=== PATIENT | male | born 1990 | race Caucasian/White ===

== ENCOUNTER 2021-01-13 22:01 | Emergency (ER) | payer OTHER ==
[2021-01-13 22:11] VITALS: TEMP 97.6
[2021-01-13] MEDS ORDERED: ONDANSETRON 4 MG/2 ML VIAL IVP STA (22:19)
[2021-01-13] MEDS ORDERED: SODIUM CHLORIDE 0.9% 1,000 ML IV STA (22:19)
[2021-01-13] MEDS ORDERED: MORPHINE SULFATE 4 MG/ML SYRINGE IV STA (22:19)
--- NOTE | 2021-01-13 22:54 | ED ---
Nausea/Vomiting/Diarrhea HPI - General Chief complaint: Nausea/Vomiting/Diarrhea Stated complaint: Vomiting Time Seen by Provider: 01/13/21 22:15 Source: patient, RN notes reviewed Mode of arrival: ambulatory Limitations: no limitations - History of Present Illness Initial comments: Patient is a 30-year-old male that presents to the emergency department complaining of nausea and vomiting times one. He notes every time he eats or drinks anything he vomits. He notes up until this point he is been a picture perfect health with no health issues. She notes that he is been try to drink water and Gatorade stay hydrated. He denied any other complaints or issues at this time. He was in no apparent distress or pain while sitting up in bed during exam and interview. He did note that he had some mild abdominal discomfort in the left upper quadrant. She denied any history of pancreatitis or other abdominal issues. He denied any chest pain shortness breath headache diarrhea constipation fever fatigue chills. - Related Data Previous Rx's Medication Instructions Recorded Ibuprofen [Motrin] 800 mg PO Q6HR #30 tab 07/29/17 Penicillin V Potassium [Pen Vee K] 500 mg PO QID #40 tablet 07/29/17 Allergies Allergy/AdvReac Type Severity Reaction Status Date / Time No Known Allergies Allergy Verified 01/13/21 22:10 Review of Systems ROS Statement: Those systems with pertinent positive or pertinent negative responses have been documented in the HPI. ROS Other: All systems not noted in ROS Statement are negative. Past Medical History Past Medical History: No Reported History History of Any Multi-Drug Resistant Organisms: None Reported Past Surgical History: No Surgical Hx Reported Past Psychological History: No Psychological Hx Reported Past Alcohol Use History: None Reported Past Drug Use History: None Reported General Exam Limitations: no limitations General appearance: alert, in no apparent distress Head exam: Present: atraumatic, normocephalic, normal inspection Eye exam: Present: normal appearance, PERRL, EOMI. Absent: scleral icterus, conjunctival injection, periorbital swelling Neck exam: Present: normal inspection Respiratory exam: Present: normal lung sounds bilaterally. Absent: respiratory distress, wheezes, rales, rhonchi, stridor Cardiovascular Exam: Present: regular rate, normal rhythm, normal heart sounds. Absent: systolic murmur, diastolic murmur, rubs, gallop, clicks GI/Abdominal exam: Present: soft, tenderness (Left upper quadrant), normal bowel sounds. Absent: distended, guarding, rebound, rigid Extremities exam: Present: normal inspection, full ROM, normal capillary refill. Absent: tenderness, pedal edema, joint swelling, calf tenderness Neurological exam: Present: alert, oriented X3, CN II-XII intact Psychiatric exam: Present: normal affect, normal mood Skin exam: Present: warm, dry, intact, normal color. Absent: rash Course Vital Signs 01/13/21 01/13/21 01/14/21 22:08 23:09 01:08 Temperature 97.6 F Pulse Rate 74 64 67 Respiratory 18 20 18 Rate Blood Pressure 120/78 131/75 135/75 O2 Sat by Pulse 99 97 98 Oximetry Medical Decision Making - Medical Decision Making 22-year-old male complaining of nausea and vomiting times one. Labs, 4 mg of Zofran, 4 mg morphine, KUB, 1 L normal saline ordered. Labs show an elevated white count of 16.7. Patient appears to be dehydrated. Upon reevaluation patient states that he is feeling much better like to go home at this time. Case discussed with Dr. Gutiérrez, patient can discharge home with follow-up to primary care. - Lab Data Result diagrams: 01/13/21 22:53 01/13/21 22:53 Lab Results 01/13/21 01/13/21 Range/Units 22:53 22:53 WBC 16.7 H (3.8-10.6) k/uL RBC 5.76 (4.30-5.90) m/uL Hgb 17.5 (13.0-17.5) gm/dL Hct 51.2 (39.0-53.0) % MCV 88.9 (80.0-100.0) fL MCH 30.5 (25.0-35.0) pg MCHC 34.3 (31.0-37.0) g/dL RDW 13.2 (11.5-15.5) % Plt Count 311 (150-450) k/uL MPV 8.1 Neutrophils % 90 % Lymphocytes % 5 % Monocytes % 3 % Eosinophils % 1 % Basophils % 0 % Neutrophils # 15.0 H (1.3-7.7) k/uL Lymphocytes # 0.8 L (1.0-4.8) k/uL Monocytes # 0.6 (0-1.0) k/uL Eosinophils # 0.2 (0-0.7) k/uL Basophils # 0.0 (0-0.2) k/uL Sodium 145 (137-145) mmol/L Potassium 5.1 (3.5-5.1) mmol/L Chloride 99 (98-107) mmol/L Carbon Dioxide 25 (22-30) mmol/L Anion Gap 21 mmol/L BUN 22 H (9-20) mg/dL Creatinine 1.53 H (0.66-1.25) mg/dL Est GFR (CKD-EPI)AfAm 70 (>60 ml/min/1.73 sqM) Est GFR (CKD-EPI)NonAf 61 (>60 ml/min/1.73 sqM) Glucose 135 H (74-99) mg/dL Calcium 11.5 H (8.4-10.2) mg/dL Total Bilirubin 0.5 (0.2-1.3) mg/dL AST 26 (17-59) U/L ALT 26 (4-49) U/L Alkaline Phosphatase 72 (38-126) U/L Total Protein 9.6 H (6.3-8.2) g/dL Albumin 5.7 H (3.5-5.0) g/dL Amylase 75 (30-110) U/L Lipase 26 (23-300) U/L - Radiology Data Radiology results: report reviewed, image reviewed KUB: No acute findings. Disposition Clinical Impression: Dehydration, Gastroenteritis Disposition: HOME SELF-CARE Condition: Stable Instructions (If sedation given, give patient instructions): Acute Nausea and Vomiting (ED) Additional Instructions: Please return to the Emergency Department if symptoms worsen or any other concer ns. Follow-up with primary care in 1-3 days. Continue to increase oral fluids and eat food as tolerated. Take Zofran as prescribed. Is patient prescribed a controlled substance at d/c from ED?: No Referrals: None,Stated [Primary Care Provider] - 1-2 days Time of Disposition: 01:13
[2021-01-13 23:36] LABS: Basophils % (A) 0 %; Eosinophils # (A) 0.2 k/uL (0-0.7); Eosinophils % (A) 1 %; HCT 51.2 % (39.0-53.0); HGB 17.5 gm/dL (13.0-17.5); Lymphocytes # (A) 0.8 k/uL (1.0-4.8); Lymphocytes % (A) 5 %; MCH 30.5 pg (25.0-35.0); MCHC 34.3 g/dL (31.0-37.0); MCV 88.9 fL (80.0-100.0); Mean Platelet Volume 8.1; Monocytes # (A) 0.6 k/uL (0-1.0); Monocytes % (A) 3 %; Neutrophils % (A) 90 %; Platelet Count 311 k/uL (150-450); RBC 5.76 m/uL (4.30-5.90); RDW 13.2 % (11.5-15.5); WBC 16.7 k/uL (3.8-10.6)
[2021-01-14 00:05] LABS: Albumin 5.7 g/dL (3.5-5.0); Calcium 11.5 mg/dL (8.4-10.2); Potassium 5.1 mmol/L (3.5-5.1); Total Bilirubin 0.5 mg/dL (0.2-1.3); Total Protein 9.6 g/dL (6.3-8.2)
[2021-01-14] MEDS ORDERED: SODIUM CHLORIDE 0.9% 1,000 ML IV STA (00:19)
--- NOTE | 2021-01-14 01:03 | XR ---
EXAM: XR Abdomen, 1 View CLINICAL HISTORY: ITS.REASON XR Reason: pain TECHNIQUE: Frontal supine view of the abdomen/pelvis. COMPARISON: No relevant prior studies available. FINDINGS: Intraperitoneal space: No pneumoperitoneum is seen under the diaphragm. Gastrointestinal tract: There is a gas fluid level in a nondilated stomach. Small bowel loops are nondilated. The colon is nondilated. Bones/joints: Skeletal structures appear unremarkable. Other findings: No abnormal calcifications are visualized. IMPRESSION: No acute findings.
[2021-01-14] MEDS ORDERED: ONDANSETRON 4 MG ODT STARTER PACK 2 TAB BTL PO STA (01:13)
[2021-01-14 02:35] VITALS: BP 135/87; PULSE 71; RESP 14
== END 2021-01-14 02:34 | disposition home or self-care (01) ==
LOC: EC 22:01
DX: E86.0 Dehydration (principal); K52.9 Noninfective gastroenteritis and colitis, unspecified; D72.829 Elevated white blood cell count, unspecified
CPT/HCPCS: 99284 ×2; 96360; 80053; 82150; 83690; 85025; 74018; 96374; 96375; 96361; J2270; J2405; 10060

== ENCOUNTER 2021-04-04 17:21 | Emergency (ER) | payer OTHER ==
[2021-04-04 17:24] VITALS: TEMP 98
[2021-04-04] MEDS ORDERED: IBUPROFEN 800 MG TAB PO STA (18:28)
[2021-04-04] MEDS ORDERED: HYDROcodone/APAP 5-325MG 1 EACH TAB PO STA (18:28)
--- NOTE | 2021-04-04 20:08 | XR ---
EXAMINATION TYPE: XR hand complete LT DATE OF EXAM: 04/04/2021 CLINICAL HISTORY: And in particular fifth metacarpal pain and swelling after falling injury. TECHNIQUE: Frontal, lateral and oblique images of the left hand are obtained. COMPARISON: None. FINDINGS: There is acute comminuted impacted and slightly displaced fracture through the distal metad iaphysis that metacarpal. Slight radial displacement of distal fracture fragment noted. The joint spa kirill in the left hand appear within normal limits. The overlying soft tissue appears unremarkable. IMPRESSION: There is acute comminuted slightly displaced fracture through the distal metadiaphysis f ifth metacarpal. (Boxer type fracture)
--- NOTE | 2021-04-04 20:23 | ED ---
General Adult HPI - General Chief complaint: Extremity Injury, Upper Stated complaint: L hand injury Time Seen by Provider: 04/04/21 18:10 Source: patient, RN notes reviewed, old records reviewed Mode of arrival: ambulatory Limitations: no limitations - History of Present Illness Initial comments: I evaluated the patient when he was placed in a bed. Patient is a 30-year-old male who is left-handed who presents emergency Department complaining of a fall off of a skateboard. He landed on an outstretched left hand. He immediately expressed swelling around his left knuckle. He presents emergency department over concern for possible fracture. Denies any other injuries, including his side, loss of consciousness, back pain, abdominal pain, chest pain. He is reduced range of motion of the left hand secondary to pain in the left finger. His femoral range of motion of the wrist. Denies any numbness, sensory deficits, weakness otherwise. His no laceration. Endorses no other acute complaints at this time. - Related Data Previous Rx's Medication Instructions Recorded Ibuprofen [Motrin] 800 mg PO Q6HR #30 tab 07/29/17 Penicillin V Potassium [Pen Vee K] 500 mg PO QID #40 tablet 07/29/17 HYDROcodone/APAP 5-325MG [[place] 1 tab PO Q6HR PRN 3 Days #12 tab 04/04/21 5-325] Ibuprofen [Motrin] 800 mg PO Q8H PRN 7 Days #21 tab 04/04/21 Allergies Allergy/AdvReac Type Severity Reaction Status Date / Time No Known Allergies Allergy Verified 04/04/21 17:24 Review of Systems ROS Statement: Those systems with pertinent positive or pertinent negative responses have been documented in the HPI. Review of Systems: CONST: Denies fever EYES: Denies blurry vision ENT: Denies nasal congestion C/V: Denies Chest pain RESP: Denies shortness of breath GI: Denies abdominal pain : Denies dysuria SKIN: Denies rash. MSK: Endorses left hand. NEURO: Denies headache ROS Other: All systems not noted in ROS Statement are negative. Past Medical History Past Medical History: No Reported History History of Any Multi-Drug Resistant Organisms: None Reported Past Surgical History: No Surgical Hx Reported Past Psychological History: No Psychological Hx Reported Smoking Status: Current every day smoker Past Alcohol Use History: None Reported Past Drug Use History: None Reported General Exam - General Exam Comments Initial Comments: General: Appears in no acute distress. HEAD: Normal with no signs of head trauma. EYES: PERRLA, EOMI, conjunctiva normal, no discharge. ENT: Hearing grossly intact RESPIRATORY: No respiratory distress C/V: Regular rate and rhythm. Peripheral pulses are 2+ and intact throughout, including the left radial pulse. ABD: Abdomen is soft, nontender. EXT: Patient has reduced range of motion of the left hand fifth digit secondary to suspected fracture. There is no obvious deformity. There is edema around the 5th MCP joint of the left hand. No sensory deficits. SKIN: No rashes or lesions observed on exposed skin. NEURO: Alert and oriented 4. No focal sensory strength deficits at this time. Limitations: no limitations Course Vital Signs 04/04/21 04/04/21 17:22 20:38 Temperature 98.0 F Pulse Rate 105 H 77 Respiratory 18 20 Rate Blood Pressure 120/70 119/80 O2 Sat by Pulse 97 100 Oximetry Procedures - Orthopedic Fracture Reduction Fracture #1 Consent Obtained: verbal consent Side: left Fracture Reduction Location: finger Analgesia: none Technique: direct manipulation Post-Reduction Neuro Exam: intact Post-Reduction Vascular Exam: intact Splint Applied: Yes ( Ulnar Gutter) Patient Tolerated Procedure: well - Orthopedic Splinting/Casting Injury #1 Side: left Upper Extremity Injury Location: hand Upper Extremity Immobilizer: sugar tong splint Medical Decision Making - Medical Decision Making Based on the patient's presentation and physical exam, I'm concerned for possible acute bony traumatic injury the patient's left hand. Therefore we will obtain an x-ray of the left hand as well as provide him with analgesia, with Beattie and ibuprofen. He was in agreement this plan. Patient's hand x-ray revealed a left comminuted slightly displaced fracture of the fifth metacarpal, boxer fracture. Discussed the results with the patient and he expressed understanding. Splint was applied, an ulnar gutter splint and he tolerated the procedure well. Postprocedure neurovascular check was within normal limits. Attempted reduction was performed during the procedure. Patient will follow-up with orthopedic surgery. He was in agreement this plan. Patient signed the opiate lead start talking form. I will provide the patient with a prescription for 12 tablets of Beattie 5, ibuprofen. I instructed the patient to follow up with their PCP in the next 3 days. I provided contact information for follow up with orthopedic surgery Dr. Donovan. I explained that the patient should return to the emergency department if they experience any worsening symptoms. Strict return precautions were discussed with the patient. The patient expressed understanding of these instructions. I answered all questions that the patient had. The patient was discharged home in fair condition with their prescriptions and follow up information. Disposition Clinical Impression: Boxer's fracture Disposition: HOME SELF-CARE Condition: Fair Instructions (If sedation given, give patient instructions): Boxer Fracture (ED) Prescriptions: Ibuprofen [Motrin] 800 mg PO Q8H PRN 7 Days #21 tab PRN Reason: Pain HYDROcodone/APAP 5-325MG [Beattie 5-325] 1 tab PO Q6HR PRN 3 Days #12 tab PRN Reason: Pain Is patient prescribed a controlled substance at d/c from ED?: Yes If prescribed controlled substance>3 days was MAPS reviewed?: Prescribed <3 Days Referrals: None,Stated [Primary Care Provider] - 1-2 days Oscar Donovan MD [STAFF PHYSICIAN] - 1-2 days
[2021-04-04 20:40] VITALS: BP 119/80; PULSE 77; RESP 20
== END 2021-04-04 20:40 | disposition home or self-care (01) ==
LOC: EC 17:21
DX: S62.327A Displaced fracture of shaft of fifth metacarpal bone, left hand, initial encounter for closed fracture (principal); F17.200 Nicotine dependence, unspecified, uncomplicated; V00.131A Fall from skateboard, initial encounter; Y93.51 Activity, roller skating (inline) and skateboarding
CPT/HCPCS: 26605; 99283

== ENCOUNTER 2023-07-17 15:28 | Emergency (ER) | payer OTHER ==
[2023-07-17 15:50] VITALS: BP 144/73; PULSE 86; RESP 16; TEMP 98
--- NOTE | 2023-07-17 16:01 | ED ---
Lower Extremity Injury HPI - General Chief Complaint: Extremity Injury, Lower Stated Complaint: R Knee Injury Time Seen by Provider: 07/17/23 16:00 Source: patient, RN notes reviewed Mode of arrival: ambulatory Limitations: no limitations - History of Present Illness Initial Comments: Patient is a 33-year-old male presented ER with chief complaint of right knee injury. Patient states he dropped a piece of furniture on his right knee and is now swollen and tender. Patient denies any fevers, chills. - Related Data Previous Rx's Medication Instructions Recorded Ibuprofen [Motrin] 800 mg PO Q6HR #30 tab 07/29/17 Penicillin V Potassium [Pen Vee K] 500 mg PO QID #40 tablet 07/29/17 HYDROcodone/APAP 5-325MG [[place] 1 tab PO Q6HR PRN 3 Days #12 tab 04/04/21 5-325] Ibuprofen [Motrin] 800 mg PO Q8H PRN 7 Days #21 tab 04/04/21 Allergies Allergy/AdvReac Type Severity Reaction Status Date / Time No Known Allergies Allergy Verified 04/04/21 17:24 Review of Systems ROS Statement: Those systems with pertinent positive or pertinent negative responses have been documented in the HPI. ROS Other: All systems not noted in ROS Statement are negative. Past Medical History Past Medical History: No Reported History History of Any Multi-Drug Resistant Organisms: None Reported Past Surgical History: No Surgical Hx Reported Past Psychological History: No Psychological Hx Reported Smoking Status: Current every day smoker Past Alcohol Use History: None Reported Past Drug Use History: None Reported General Exam - General Exam Comments Initial Comments: Visual Physical Exam Vital signs reviewed General: Well-appearing, nontoxic, no acute distress. Head: Normocephalic, atraumatic Eyes: PERRLA, EOMI ENT: Airway patent Chest: Nonlabored breathing Skin: No visual rash, normal skin tone Neuro: Alert and oriented 3 Musculoskeletal: No gross abnormalities Limitations: no limitations Course Vital Signs 07/17/23 15:35 Temperature 98 F Pulse Rate 86 Respiratory 16 Rate Blood Pressure 144/73 O2 Sat by Pulse 97 Oximetry Medical Decision Making - Medical Decision Making I performed the quick note portion of the exam. Electronically signed by Denver Artis PA-C Disposition Clinical Impression: Left against medical advice Disposition: LEFT AGAINST MEDICAL ADVICE Is patient prescribed a controlled substance at d/c from ED?: No Referrals: None,Stated [Primary Care Provider] - 1-2 days Time of Disposition: 18:30
--- NOTE | 2023-07-17 18:37 | XR ---
EXAMINATION TYPE: XR knee complete RT DATE OF EXAM: 07/17/2023 COMPARISON: None HISTORY: Pain TECHNIQUE: 3 view right knee FINDINGS: Joint spaces are preserved. No joint effusion is evident. No acute fracture or dislocation. Follow up exams can be performed 7-10 days from acute trauma for continued pain. IMPRESSION: 1. No acute osseous abnormality right knee
== END 2023-07-17 20:10 | disposition left against medical advice (07) ==
LOC: EC 15:28
DX: S89.91XA Unspecified injury of right lower leg, initial encounter (principal); Z53.29 Procedure and treatment not carried out because of patient's decision for other reasons; F17.200 Nicotine dependence, unspecified, uncomplicated; W20.8XXA Other cause of strike by thrown, projected or falling object, initial encounter
CPT/HCPCS: 99283